=== PATIENT | male | born 1955 | race Caucasian/White ===

== ENCOUNTER 2023-05-01 02:42 | Emergency (ER) | payer MEDICARE, OTHER ==
[~2023-05-01] VITALS: Ht 172.7 cm; Wt 81.7 kg
[2023-05-01] MEDS ORDERED: IBUP200 PO (03:42)
[2023-05-01 04:23] LABS: BASOPHILS ABSOLUTE AUTO 0.07 K/mm3 (0.00-0.23); BASOPHILS PERCENT AUTO 1 % (0-2); EOSINOPHILS ABSOLUTE AUTO 0.21 K/mm3 (0.00-0.68); EOSINOPHILS PERCENT AUTO 1 % (0-6); Hematocrit 41.8 % (37.0-53.0); Hemoglobin 13.5 g/dL (13.5-17.5); IMMATURE GRAN ABSOLUTE AUTO 0.07 K/mm3 (0.00-0.10); IMMATURE GRAN PERCENT AUTO 1 % (0-1); LYMPHOCYTES ABSOLUTE AUTO 1.35 K/mm3 (0.84-5.20); LYMPHOCYTES PERCENT AUTO 9 % (21-46); MONOCYTES ABSOLUTE AUTO 1.02 K/mm3 (0.16-1.47); MONOCYTES PERCENT AUTO 7 % (4-13); Mean Corpuscular HGB 29.7 pg (26.0-34.0); Mean Corpuscular HGB Conc 32.3 g/dL (31.5-36.5); Mean Corpuscular Volume 92 fL (80-100); Mean Platelet Volume 10.8 fL (9.1-12.4); NEUTROPHILS ABSOLUTE AUTO 12.56 K/mm3 (1.96-9.15); NEUTROPHILS PERCENT AUTO 82 % (41-73); Platelet Count 425 K/mm3 (150-400); RDW Coefficient Variation 13.1 % (11.7-14.2); RDW Standard Deviation 44.6 fL (35.1-46.3); Red Blood Cell Count 4.54 M/mm3 (4.30-5.90); White Blood Cell Count 15.28 K/mm3 (4.00-11.30)
[2023-05-01 04:44] LABS: Albumin/Globulin Ratio 0.6 (0.8-1.8); Bilirubin, Total 0.5 mg/dL (0.1-1.0); Bun/Creatinine Ratio 21.2 (12.0-20.0); Calcium, Blood 8.9 mg/dL (8.5-10.1); Creatinine, Blood 0.75 mg/dL (0.60-1.20); Globulin, Blood 5.3 g/dL (2.2-4.0); Magnesium, Blood 2.3 mg/dL (1.6-2.4); Phosphorus, Blood 2.6 mg/dL (2.5-4.9); Potassium, Blood 3.9 mmol/L (3.5-5.5); Total Protein, Blood 8.3 g/dL (6.4-8.2)
[2023-05-01 05:07] LABS: D-Dimer, Quantitative 2.99 mg/L FEU (0.00-0.52); International Normalized Ratio 1.04; Prothrombin Time Results 10.9 Sec (9.7-11.5)
[2023-05-01 08:45] VITALS: BP 144/84
== END 2023-05-01 18:07 | disposition short-term general hospital (02) ==
LOC: ER 02:42
PROVIDERS: Emergency Medicine
DX: I77.89 Other specified disorders of arteries and arterioles (principal); Z87.891 Personal history of nicotine dependence
CPT/HCPCS: 36620; 71046; 71275; 80053; 83605; 83690; 83735; 83880; 84100; 84484; 85025; 85379; 85610; 85730; 93005; 93010; 96374-59; 96375-59; 96376-59; 99285-25; A9270; J2270; J2405; J3010; J7030; Q9967

== ENCOUNTER 2023-05-17 06:21 | Day surgery (SDC) | payer MEDICARE, OTHER ==
[~2023-05-17 06:21] MED LIST: IBUP200 PO
[2023-05-17 14:07] VITALS: BP 110/94
[2023-05-17] MEDS ORDERED: Acetaminophen650 M1 PO (14:17)
[2023-05-17] MEDS ORDERED: Amiodarone HCl200 MG PO (14:18)
[2023-05-17] MEDS ORDERED: AMLODIPINE-OLM1 EAC4 PO (14:19)
[2023-05-17] MEDS ORDERED: Carvedilol12.5 MG PO (14:19)
[2023-05-17] MEDS ORDERED: CEFTRIAXONE2 G1 IV (14:20)
[2023-05-17] MEDS ORDERED: LIDO700A20 TOP (14:21)
[2023-05-17] MEDS ORDERED: OXYC5 PO (14:22)
[2023-05-17] MEDS ORDERED: LISI20 PO (14:22)
== END 2023-05-17 14:40 | disposition home or self-care (01) ==
LOC: ATC 06:21
DX: I77.6 Arteritis, unspecified (principal); I10 Essential (primary) hypertension; I48.0 Paroxysmal atrial fibrillation; Z87.891 Personal history of nicotine dependence; I31.9 Disease of pericardium, unspecified
CPT/HCPCS: 96365; J0696

== ENCOUNTER 2023-05-18 02:07 | Day surgery (SDC) | payer MEDICARE, OTHER ==
[~2023-05-18 02:07] MED LIST changes: +AMLODIPINE-OLM1 EAC4 PO; +Acetaminophen650 M1 PO; +Amiodarone HCl200 MG PO; +CEFTRIAXONE2 G1 IV; +Carvedilol12.5 MG PO; +LIDO700A20 TOP; +LISI20 PO; +OXYC5 PO
--- NOTE | 2023-05-18 13:34 | NUR ---
PT DID NOT SHOW FOR HIS APPOINTMENT IN THE [facility] THIS MORNING.
[2023-05-18 13:45] VITALS: BP 89/69
== END 2023-05-18 14:08 | disposition home or self-care (01) ==
LOC: ATC 02:07
DX: I77.6 Arteritis, unspecified (principal); I10 Essential (primary) hypertension; Z87.891 Personal history of nicotine dependence; I48.91 Unspecified atrial fibrillation
CPT/HCPCS: 96365; J0696

== ENCOUNTER 2023-05-19 01:28 | Day surgery (SDC) | payer MEDICARE, OTHER ==
[2023-05-19 11:14] VITALS: BP 112/76
[2023-05-19 11:56] LABS: BASOPHILS ABSOLUTE AUTO 0.07 K/mm3 (0.00-0.23); BASOPHILS PERCENT AUTO 1 % (0-2); EOSINOPHILS ABSOLUTE AUTO 0.18 K/mm3 (0.00-0.68); EOSINOPHILS PERCENT AUTO 2 % (0-6); Hematocrit 36.2 % (37.0-53.0); Hemoglobin 11.5 g/dL (13.5-17.5); IMMATURE GRAN ABSOLUTE AUTO 0.03 K/mm3 (0.00-0.10); IMMATURE GRAN PERCENT AUTO 0 % (0-1); LYMPHOCYTES ABSOLUTE AUTO 1.36 K/mm3 (0.84-5.20); LYMPHOCYTES PERCENT AUTO 14 % (21-46); MONOCYTES ABSOLUTE AUTO 0.77 K/mm3 (0.16-1.47); MONOCYTES PERCENT AUTO 8 % (4-13); Mean Corpuscular HGB 30.1 pg (26.0-34.0); Mean Corpuscular HGB Conc 31.8 g/dL (31.5-36.5); Mean Corpuscular Volume 95 fL (80-100); Mean Platelet Volume 10.9 fL (9.1-12.4); NEUTROPHILS ABSOLUTE AUTO 7.62 K/mm3 (1.96-9.15); NEUTROPHILS PERCENT AUTO 76 % (41-73); Platelet Count 500 K/mm3 (150-400); RDW Coefficient Variation 13.9 % (11.7-14.2); Red Blood Cell Count 3.82 M/mm3 (4.30-5.90); White Blood Cell Count 10.03 K/mm3 (4.00-11.30)
[2023-05-19 13:27] LABS: Albumin, Blood 2.9 g/dL (3.4-5.0); Albumin/Globulin Ratio 0.6 (0.8-1.8); Bilirubin, Total 0.3 mg/dL (0.1-1.0); Bun/Creatinine Ratio 28.9 (12.0-20.0); C-REACTIVE PROTEIN, EXT RANGE 7.8 mg/dL (0.000-0.300); Calcium, Blood 9.1 mg/dL (8.5-10.1); Creatinine, Blood 0.87 mg/dL (0.60-1.20); Globulin, Blood 4.8 g/dL (2.2-4.0); Total Protein, Blood 7.7 g/dL (6.4-8.2)
== END 2023-05-19 11:31 | disposition home or self-care (01) ==
LOC: ATC 01:28
DX: A49.9 Bacterial infection, unspecified (principal); I10 Essential (primary) hypertension; I77.6 Arteritis, unspecified; I31.9 Disease of pericardium, unspecified; I48.0 Paroxysmal atrial fibrillation
CPT/HCPCS: 80053; 85025; 86140; 96365; J0696

== ENCOUNTER 2023-05-20 04:43 | Day surgery (SDC) | payer MEDICARE, OTHER ==
[2023-05-20 10:43] VITALS: BP 120/79
--- NOTE | 2023-05-20 13:54 | NUR ---
LAB RESULTS FROM 05/19/23 FAXED TO [facility] ID DEPARTMENT. [phone]
== END 2023-05-20 11:02 | disposition home or self-care (01) ==
LOC: ATC 04:43
DX: A49.9 Bacterial infection, unspecified (principal)
CPT/HCPCS: 96365; J0696

== ENCOUNTER 2023-05-21 03:56 | Day surgery (SDC) | payer MEDICARE, OTHER ==
[2023-05-21 14:15] VITALS: BP 108/78
== END 2023-05-21 14:30 | disposition home or self-care (01) ==
LOC: ATC 03:56
DX: A49.9 Bacterial infection, unspecified (principal); I10 Essential (primary) hypertension; I48.0 Paroxysmal atrial fibrillation; Z87.891 Personal history of nicotine dependence
CPT/HCPCS: 96365; J0696

== ENCOUNTER 2023-05-22 04:32 | Day surgery (SDC) | payer MEDICARE, OTHER ==
[2023-05-22 14:01] VITALS: BP 102/84
== END 2023-05-22 14:28 | disposition home or self-care (01) ==
LOC: ATC 04:32
DX: A49.9 Bacterial infection, unspecified (principal); I10 Essential (primary) hypertension; I77.6 Arteritis, unspecified; I31.9 Disease of pericardium, unspecified; I48.0 Paroxysmal atrial fibrillation
CPT/HCPCS: 96365; J0696

== ENCOUNTER 2023-05-23 03:22 | Day surgery (SDC) | payer MEDICARE, OTHER ==
[2023-05-23 13:30] VITALS: BP 97/70
== END 2023-05-23 13:57 | disposition home or self-care (01) ==
LOC: ATC 03:22
DX: I71.00 Dissection of unspecified site of aorta (principal); I77.6 Arteritis, unspecified; I31.9 Disease of pericardium, unspecified; I10 Essential (primary) hypertension; I48.91 Unspecified atrial fibrillation; K57.32 Diverticulitis of large intestine without perforation or abscess without bleeding; Z87.891 Personal history of nicotine dependence
CPT/HCPCS: 96365; J0696

== ENCOUNTER 2023-05-24 05:27 | Day surgery (SDC) | payer MEDICARE, OTHER ==
[2023-05-24 13:40] VITALS: BP 120/82
== END 2023-05-24 14:05 | disposition home or self-care (01) ==
LOC: ATC 05:27
DX: I71.010 Dissection of ascending aorta (principal); I77.6 Arteritis, unspecified; I31.9 Disease of pericardium, unspecified; D72.829 Elevated white blood cell count, unspecified; I48.0 Paroxysmal atrial fibrillation; J95.821 Acute postprocedural respiratory failure; R73.9 Hyperglycemia, unspecified; I10 Essential (primary) hypertension; Z87.891 Personal history of nicotine dependence
CPT/HCPCS: 96365; J0696

== ENCOUNTER 2023-05-25 02:06 | Day surgery (SDC) | payer MEDICARE, OTHER ==
[2023-05-25 13:26] VITALS: BP 109/85
== END 2023-05-25 13:50 | disposition home or self-care (01) ==
LOC: ATC 02:06
DX: A49.9 Bacterial infection, unspecified (principal); I10 Essential (primary) hypertension; I77.6 Arteritis, unspecified; I31.9 Disease of pericardium, unspecified; I48.0 Paroxysmal atrial fibrillation
CPT/HCPCS: 96365; J0696

== ENCOUNTER 2023-05-26 05:51 | Day surgery (SDC) | payer MEDICARE, OTHER ==
[2023-05-26 13:45] VITALS: BP 109/77
== END 2023-05-26 14:05 | disposition home or self-care (01) ==
LOC: ATC 05:51
DX: A49.9 Bacterial infection, unspecified (principal); I10 Essential (primary) hypertension
CPT/HCPCS: J0696

== ENCOUNTER 2023-05-27 01:48 | Day surgery (SDC) | payer MEDICARE, OTHER ==
[2023-05-27 14:06] VITALS: BP 101/80
[2023-05-27 15:27] LABS: BASOPHILS PERCENT AUTO 1 % (0-2); EOSINOPHILS ABSOLUTE AUTO 0.38 K/mm3 (0.00-0.68); EOSINOPHILS PERCENT AUTO 4 % (0-6); Hemoglobin 11.3 g/dL (13.5-17.5); IMMATURE GRAN ABSOLUTE AUTO 0.04 K/mm3 (0.00-0.10); IMMATURE GRAN PERCENT AUTO 1 % (0-1); LYMPHOCYTES ABSOLUTE AUTO 1.76 K/mm3 (0.84-5.20); LYMPHOCYTES PERCENT AUTO 20 % (21-46); MONOCYTES PERCENT AUTO 8 % (4-13); Mean Corpuscular HGB 29.9 pg (26.0-34.0); Mean Corpuscular HGB Conc 31.4 g/dL (31.5-36.5); Mean Corpuscular Volume 95 fL (80-100); Mean Platelet Volume 10.7 fL (9.1-12.4); NEUTROPHILS ABSOLUTE AUTO 5.84 K/mm3 (1.96-9.15); NEUTROPHILS PERCENT AUTO 66 % (41-73); Platelet Count 426 K/mm3 (150-400); RDW Coefficient Variation 13.6 % (11.7-14.2); RDW Standard Deviation 47.7 fL (35.1-46.3); Red Blood Cell Count 3.78 M/mm3 (4.30-5.90); White Blood Cell Count 8.82 K/mm3 (4.00-11.30)
[2023-05-27 15:49] LABS: Albumin, Blood 3.2 g/dL (3.4-5.0); Albumin/Globulin Ratio 0.7 (0.8-1.8); Bilirubin, Total 0.3 mg/dL (0.1-1.0); Bun/Creatinine Ratio 17.6 (12.0-20.0); C-REACTIVE PROTEIN, EXT RANGE 2.62 mg/dL (0.000-0.300); Calcium, Blood 9.3 mg/dL (8.5-10.1); Creatinine, Blood 0.96 mg/dL (0.60-1.20); Globulin, Blood 4.7 g/dL (2.2-4.0); Potassium, Blood 4.3 mmol/L (3.5-5.5); Total Protein, Blood 7.9 g/dL (6.4-8.2)
== END 2023-05-27 14:26 | disposition home or self-care (01) ==
LOC: ATC 01:48
DX: A49.9 Bacterial infection, unspecified (principal); I71.00 Dissection of unspecified site of aorta; I77.6 Arteritis, unspecified; I31.9 Disease of pericardium, unspecified; I48.91 Unspecified atrial fibrillation; I10 Essential (primary) hypertension; K57.32 Diverticulitis of large intestine without perforation or abscess without bleeding; Z87.891 Personal history of nicotine dependence
CPT/HCPCS: 80053; 85025; 86140; 96365; J0696

== ENCOUNTER 2023-05-28 04:58 | Day surgery (SDC) | payer MEDICARE, OTHER ==
[2023-05-28 13:49] VITALS: BP 119/72
== END 2023-05-28 14:10 | disposition home or self-care (01) ==
LOC: ATC 04:58
DX: A49.9 Bacterial infection, unspecified (principal); I71.00 Dissection of unspecified site of aorta; I10 Essential (primary) hypertension; I48.0 Paroxysmal atrial fibrillation; Z87.891 Personal history of nicotine dependence
CPT/HCPCS: 96365; J0696

== ENCOUNTER 2023-05-29 01:44 | Day surgery (SDC) | payer MEDICARE, OTHER ==
[2023-05-29 13:47] VITALS: BP 133/83
== END 2023-05-29 14:10 | disposition home or self-care (01) ==
LOC: ATC 01:44
DX: A49.9 Bacterial infection, unspecified (principal); Z87.891 Personal history of nicotine dependence; I10 Essential (primary) hypertension; I77.6 Arteritis, unspecified; I31.9 Disease of pericardium, unspecified; I48.0 Paroxysmal atrial fibrillation
CPT/HCPCS: 96365; J0696

== ENCOUNTER 2023-05-30 03:29 | Day surgery (SDC) | payer MEDICARE, OTHER ==
[2023-05-30 13:31] VITALS: BP 101/64
== END 2023-05-30 13:51 | disposition home or self-care (01) ==
LOC: ATC 03:29
DX: A49.9 Bacterial infection, unspecified (principal); I10 Essential (primary) hypertension; I77.6 Arteritis, unspecified; I48.0 Paroxysmal atrial fibrillation
CPT/HCPCS: 96365; J0696

== ENCOUNTER 2023-05-31 00:36 | Day surgery (SDC) | payer MEDICARE, OTHER ==
[2023-05-31] MEDS ORDERED: CefTRIAXone Sodium 2,000 MG in NS 100 ML IV SCH (06:00)
[2023-05-31 13:11] VITALS: BP 115/79
== END 2023-05-31 13:32 | disposition home or self-care (01) ==
LOC: ATC 00:36
DX: A49.9 Bacterial infection, unspecified (principal); I10 Essential (primary) hypertension; Z87.891 Personal history of nicotine dependence
CPT/HCPCS: 96365; J0696

== ENCOUNTER 2023-06-01 00:27 | Day surgery (SDC) | payer MEDICARE, OTHER ==
[2023-06-01] MEDS ORDERED: CefTRIAXone Sodium 2,000 MG in NS 100 ML IV SCH (01:00)
[2023-06-01 14:00] VITALS: BP 107/81
== END 2023-06-01 13:49 | disposition home or self-care (01) ==
LOC: ATC 00:27
DX: A49.9 Bacterial infection, unspecified (principal); I10 Essential (primary) hypertension; I48.0 Paroxysmal atrial fibrillation; Z79.899 Other long term (current) drug therapy
CPT/HCPCS: 96365; J0696

== ENCOUNTER 2023-06-02 02:12 | Day surgery (SDC) | payer MEDICARE, OTHER ==
[2023-06-02 13:28] VITALS: BP 110/76
== END 2023-06-02 22:39 | disposition home or self-care (01) ==
LOC: ATC 02:12
DX: A49.9 Bacterial infection, unspecified (principal); I10 Essential (primary) hypertension; I48.0 Paroxysmal atrial fibrillation; Z87.891 Personal history of nicotine dependence
CPT/HCPCS: 80053; 85025; 86140; 96365; J0696

== ENCOUNTER 2023-06-03 06:00 | Day surgery (SDC) | payer MEDICARE, OTHER ==
[2023-06-03 13:39] VITALS: BP 101/80
== END 2023-06-03 14:03 | disposition home or self-care (01) ==
LOC: ATC 06:00
DX: A49.9 Bacterial infection, unspecified (principal); I48.0 Paroxysmal atrial fibrillation; Z87.891 Personal history of nicotine dependence
CPT/HCPCS: 96365; J0696

== ENCOUNTER 2023-06-04 02:08 | Day surgery (SDC) | payer MEDICARE, OTHER ==
[2023-06-04 13:32] VITALS: BP 102/79
== END 2023-06-04 13:55 | disposition home or self-care (01) ==
LOC: ATC 02:08
DX: A49.9 Bacterial infection, unspecified (principal); I71.00 Dissection of unspecified site of aorta; I10 Essential (primary) hypertension; I48.0 Paroxysmal atrial fibrillation; Z87.891 Personal history of nicotine dependence
CPT/HCPCS: 96365; J0696

== ENCOUNTER 2023-06-05 02:29 | Day surgery (SDC) | payer MEDICARE, OTHER ==
[2023-06-05 13:24] VITALS: BP 100/83
== END 2023-06-05 13:48 | disposition home or self-care (01) ==
LOC: ATC 02:29
DX: A49.9 Bacterial infection, unspecified (principal); I10 Essential (primary) hypertension; I77.6 Arteritis, unspecified; I31.9 Disease of pericardium, unspecified; I48.0 Paroxysmal atrial fibrillation
CPT/HCPCS: 96365; J0696

== ENCOUNTER 2023-06-06 02:40 | Day surgery (SDC) | payer MEDICARE, OTHER ==
[2023-06-06] MEDS ORDERED: CefTRIAXone Sodium 2,000 MG in NS 100 ML IV SCH (06:00)
[2023-06-06 12:49] VITALS: BP 101/67
== END 2023-06-06 13:08 | disposition home or self-care (01) ==
LOC: ATC 02:40
DX: A49.9 Bacterial infection, unspecified (principal); I71.00 Dissection of unspecified site of aorta; Z87.891 Personal history of nicotine dependence
CPT/HCPCS: 96365; J0696

== ENCOUNTER 2023-06-07 01:23 | Day surgery (SDC) | payer MEDICARE, OTHER ==
[2023-06-07 13:22] VITALS: BP 106/68
== END 2023-06-07 13:47 | disposition home or self-care (01) ==
LOC: ATC 01:23
DX: A49.9 Bacterial infection, unspecified (principal); I77.6 Arteritis, unspecified; I31.9 Disease of pericardium, unspecified; I48.0 Paroxysmal atrial fibrillation
CPT/HCPCS: 96365; J0696

== ENCOUNTER 2023-06-08 01:54 | Day surgery (SDC) | payer MEDICARE, OTHER ==
[2023-06-08 13:27] VITALS: BP 101/70
== END 2023-06-08 13:40 | disposition home or self-care (01) ==
LOC: ATC 01:54
DX: A49.9 Bacterial infection, unspecified (principal)
CPT/HCPCS: 96365; J0696

== ENCOUNTER 2023-06-09 02:58 | Day surgery (SDC) | payer MEDICARE, OTHER ==
[2023-06-09 13:30] VITALS: BP 110/83
== END 2023-06-09 14:00 | disposition home or self-care (01) ==
LOC: ATC 02:58
DX: A49.9 Bacterial infection, unspecified (principal); Z87.891 Personal history of nicotine dependence
CPT/HCPCS: 96365; J0696

== ENCOUNTER 2023-06-10 02:15 | Day surgery (SDC) | payer MEDICARE, OTHER ==
[2023-06-10 13:20] VITALS: BP 111/79
[2023-06-10 14:13] LABS: BASOPHILS ABSOLUTE AUTO 0.07 K/mm3 (0.00-0.23); BASOPHILS PERCENT AUTO 1 % (0-2); EOSINOPHILS ABSOLUTE AUTO 0.35 K/mm3 (0.00-0.68); EOSINOPHILS PERCENT AUTO 4 % (0-6); Hematocrit 35.5 % (37.0-53.0); Hemoglobin 11.2 g/dL (13.5-17.5); IMMATURE GRAN ABSOLUTE AUTO 0.03 K/mm3 (0.00-0.10); IMMATURE GRAN PERCENT AUTO 0 % (0-1); LYMPHOCYTES ABSOLUTE AUTO 1.71 K/mm3 (0.84-5.20); LYMPHOCYTES PERCENT AUTO 18 % (21-46); MONOCYTES ABSOLUTE AUTO 0.78 K/mm3 (0.16-1.47); MONOCYTES PERCENT AUTO 8 % (4-13); Mean Corpuscular HGB 29.6 pg (26.0-34.0); Mean Corpuscular HGB Conc 31.5 g/dL (31.5-36.5); Mean Corpuscular Volume 94 fL (80-100); Mean Platelet Volume 10.6 fL (9.1-12.4); NEUTROPHILS ABSOLUTE AUTO 6.36 K/mm3 (1.96-9.15); NEUTROPHILS PERCENT AUTO 68 % (41-73); Platelet Count 372 K/mm3 (150-400); RDW Coefficient Variation 13.5 % (11.7-14.2); RDW Standard Deviation 46.6 fL (35.1-46.3); Red Blood Cell Count 3.79 M/mm3 (4.30-5.90)
[2023-06-10 14:32] LABS: Albumin, Blood 3.3 g/dL (3.4-5.0); Albumin/Globulin Ratio 0.7 (0.8-1.8); Bilirubin, Total 0.3 mg/dL (0.1-1.0); Bun/Creatinine Ratio 23.1 (12.0-20.0); C-REACTIVE PROTEIN, EXT RANGE 4.85 mg/dL (0.000-0.300); Creatinine, Blood 0.69 mg/dL (0.60-1.20); Globulin, Blood 4.6 g/dL (2.2-4.0); Potassium, Blood 4.2 mmol/L (3.5-5.5); Total Protein, Blood 7.9 g/dL (6.4-8.2)
--- NOTE | 2023-06-10 16:42 | NUR ---
LAB RESULTS FROM TODAY FAXED TO [facility].
== END 2023-06-10 13:41 | disposition home or self-care (01) ==
LOC: ATC 02:15
DX: A49.9 Bacterial infection, unspecified (principal); I10 Essential (primary) hypertension; I48.0 Paroxysmal atrial fibrillation
CPT/HCPCS: 80053; 85025; 86140; 96365; J0696

== ENCOUNTER 2023-06-11 08:41 | Day surgery (SDC) | payer MEDICARE, OTHER ==
[2023-06-11 08:48] VITALS: BP 105/74
== END 2023-06-11 09:10 | disposition home or self-care (01) ==
LOC: ATC 08:41
DX: A49.9 Bacterial infection, unspecified (principal); I10 Essential (primary) hypertension; I77.6 Arteritis, unspecified; I48.0 Paroxysmal atrial fibrillation
CPT/HCPCS: 96365; J0696

== ENCOUNTER 2023-06-12 10:43 | Day surgery (SDC) | payer MEDICARE, OTHER ==
[2023-06-12 13:38] VITALS: BP 100/72
== END 2023-06-12 13:58 | disposition home or self-care (01) ==
LOC: ATC 10:43
DX: A49.9 Bacterial infection, unspecified (principal); I10 Essential (primary) hypertension; I77.6 Arteritis, unspecified; I48.0 Paroxysmal atrial fibrillation
CPT/HCPCS: 96365; J0696

== ENCOUNTER 2023-06-13 04:28 | Day surgery (SDC) | payer MEDICARE, OTHER ==
[2023-06-13 13:16] VITALS: BP 118/76
== END 2023-06-13 13:43 | disposition home or self-care (01) ==
LOC: ATC 04:28
DX: I77.6 Arteritis, unspecified (principal); I31.9 Disease of pericardium, unspecified; A49.9 Bacterial infection, unspecified
CPT/HCPCS: 96365; J0696

== ENCOUNTER 2024-01-28 08:06 | Day surgery (SDC) | payer MEDICARE, OTHER ==
[~2024-01-28] VITALS: Ht 167 cm; Wt 79.7 kg
[~2024-01-28 08:06] MED LIST changes: +AMOCLA875 PO; +CeFAZolin Sodium 2,000 MG in NS 100 ML IV SCH; +Lactated Ringer's 1,000 ML IV SCH
[2024-01-28 09:21] VITALS: BP 137/85
[2024-01-28] MEDS ORDERED: AMLODIPINE BESY10 MG PO (09:23)
[2024-01-28] MEDS ORDERED: Bupivacaine 0.5% HCl 5 MG/ML 30MLVIAL ONE (09:56)
[2024-01-28] MEDS ORDERED: FentaNYL Citrate 50 MCG/ML 2 ML Injection ONE (10:03)
[2024-01-28] MEDS ORDERED: Sugammadex Sodium 200 MG/2ML SDV (100 MG/ML) ONE (10:04)
[2024-01-28] MEDS ORDERED: propofoL 20 ML IV ONE (10:04)
[2024-01-28] MEDS ORDERED: Ondansetron HCl 2 MG / ML 2ML Vial ONE (10:06)
[2024-01-28] MEDS ORDERED: Rocuronium Bromide 10 MG/ML 5ML Injection IV ONE (10:06)
[2024-01-28] MEDS ORDERED: Dexamethasone Sod Phos 10 MG/ML 1ML VIAL ONE (10:06)
[2024-01-28] MEDS ORDERED: ePHEDrine Sulfate 50 MG/ML 1ML Injection ONE (10:13)
[2024-01-28] MEDS ORDERED: Ketorolac Tromethamine 30mg Vial ONE (10:59)
[2024-01-28 11:22] VITALS: BP 140/98
[2024-01-28 11:25] VITALS: BP 139/95
[2024-01-28] MEDS ORDERED: HYDROcodone 5-APAP 325 TAB PO PRN (11:25)
[2024-01-28 11:34] VITALS: BP 122/88; BP 131/90
[2024-01-28 11:45] VITALS: BP 122/87
--- NOTE | 2024-01-28 12:19 | NUR ---
Discharged via wheelchair to private car for ride home.PT CALLED AND TALKED WITH FATHER AND DISCHARGE INSTRUCTION GIVEN. Discharge instructions reviewed with patient. Patient verbalizes understanding. Copy given to patient to take home. DRESSING DRY AND CLEAN.ABDOMINAL BINDER APPLIED.
== END 2024-01-28 12:22 | disposition home or self-care (01) ==
LOC: ORSCMMR 08:06 → ORD 09:45 → ORSCMMR 09:45
PROVIDERS: Surgery
PROC: 0WUF0JZ Supplement Abdominal Wall with Synthetic Substitute, Open Approach (ICD-10-PCS; principal; 2024-01-28 09:45)
DX: K42.0 Umbilical hernia with obstruction, without gangrene (principal); I10 Essential (primary) hypertension; I48.91 Unspecified atrial fibrillation; Z87.891 Personal history of nicotine dependence; Z79.899 Other long term (current) drug therapy
CPT/HCPCS: C1781; J0690; J1100; J1885; J2405; J2704; J3010; J7120